=== PATIENT | male | born 1970 | race African-American/Black ===

== ENCOUNTER 2023-09-15 05:03 | Observation (INO) ==
--- NOTE | 2023-08-13 09:28 | PAT Medication Instructions ---
Medication Instructions Date of Service August 13, 2023 Home Medications Medication Instructions Recorded Lennie Chapman #1 ea 08/11/23 lamotrigine 150 mg tablet 150 mg PO BID #90 tabs 08/11/23 lisinopril 10 mg tablet 10 mg PO BID #90 tabs 08/11/23 topiramate 50 mg tablet 50 mg PO BID #90 tabs 08/11/23 lamotrigine 150 mg tablet 150 mg PO BID lisinopril 10 mg tablet 10 mg PO BID topiramate 50 mg tablet 50 mg PO BID Medical Marijuana 1 inh inhalation UD PRN cholecalciferol (vitamin D3) 1,250 mcg (50,000 unit) capsule 1,250 mcg PO WK sumatriptan succinate 6 mg/0.5 mL subcutaneous pen injector 6 mg subcut ONCE PRN Continue as directed sumatriptan succinate 6 mg/0.5 mL subcutaneous pen injector 6 mg subcut ONCE PRN (if needed) DO NOT take the morning of surgery lisinopril 10 mg tablet 10 mg PO BID Medical Marijuana 1 inh inhalation UD PRN cholecalciferol (vitamin D3) 1,250 mcg (50,000 unit) capsule 1,250 mcg PO WK Take morning of surgery With a small sip of water, OTHERWISE NOTHING TO EAT OR DRINK AFTER MIDNIGHT: lamotrigine 150 mg tablet 150 mg PO BID topiramate 50 mg tablet 50 mg PO BID Take evening before surgery lamotrigine 150 mg tablet 150 mg PO BID lisinopril 10 mg tablet 10 mg PO BID topiramate 50 mg tablet 50 mg PO BID Other Notes If you have any questions please call us at [phone] or [phone] or [phone] or [phone]
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
[2023-09-15] MEDS: METOCLOPRAMIDE HCL 10 MG TABLET PO SCH (05:43)
[2023-09-15] MEDS: ACETAMINOPHEN 500 MG TAB PO SCH ×2 (05:43→13:35)
[2023-09-15] MEDS: Scopolamine 1 MG TDSY TD SCH (05:43)
[2023-09-15] MEDS: FAMOTIDINE 20 MG TAB PO SCH (05:43)
[2023-09-15] MEDS: CeleBREX 200 MG CAP PO SCH (05:43)
[2023-09-15] MEDS: dexAMETHasone**PF** 10 MG/ML VIAL IV SCH (05:56)
[2023-09-15] MEDS: LR 60ML/HR IV SCH (05:57)
[2023-09-15] MEDS: LR 500ML BOLUS, THEN 15ML/HR IV SCH (05:57)
[2023-09-15] MEDS ORDERED: BUPIVACAINE 0.25% PF 30 ML VIAL ONE (06:19)
[2023-09-15] MEDS ORDERED: EPINEPHrine INJ 1 MG/ML AMP ONE (06:19)
[2023-09-15] MEDS ORDERED: BUPIVACAINE 0.5 % 5 MG/1 ML PF 10ML VIAL ONE (06:19)
[2023-09-15] MEDS ORDERED: DEXAMETHASONE SOD INJ 4 MG/ML VIAL ONE (06:19)
[2023-09-15] MEDS ORDERED: MIDAZOLAM HCL 1 MG/ML 2ML VIAL ONE ×2 (06:32→06:53)
[2023-09-15] MEDS ORDERED: GLYCOPYRROLATE 0.2 MG/ML VIAL ONE (06:36)
[2023-09-15] MEDS ORDERED: PROPOFOL IV EMULSION 10 MG/ML 100 ML VIAL IV ONE (06:36)
[2023-09-15] MEDS ORDERED: LIDOCAINE 2% 2 ML VIAL/AMP(20MG/ML) INFIL ONE (06:36)
[2023-09-15] MEDS ORDERED: ONDANSETRON INJ 2 MG/ML 2 ML VIAL ONE (06:36)
--- NOTE | 2023-09-15 06:55 | History & Physical Bridge Note ---
Date of Service September 15, 2023 History & Physical Bridge Note I have examined the patient, reviewed the History & Physical and in the interval since the performance of the History & Physical I have noted the following changes of clinical significance: no changes noted
[2023-09-15] MEDS ORDERED: fentaNYL citrate PF 100 MCG/2 ML VIAL ONE (07:02)
[2023-09-15] MEDS ORDERED: ATROPINE SULFATE 0.1 MG/ML 10ML SYR IV PRN (07:13)
[2023-09-15] MEDS ORDERED: ePHEDrine sulfate 50 MG/ML AMP IV PRN (07:13)
[2023-09-15] MEDS ORDERED: fentaNYL citrate PF 100 MCG/2 ML VIAL IV PRN (07:13)
[2023-09-15] MEDS ORDERED: ONDANSETRON INJ 2 MG/ML 2 ML VIAL IV PRN ×2 (07:13→10:10)
[2023-09-15] MEDS ORDERED: KETAMINE HCL 10MG/ML SYR ONE (07:17)
[2023-09-15] MEDS: ceFAZolin 2000MG 2,000 MG/15 ML SYR IV SCH (07:20)
[2023-09-15] MEDS ORDERED: KETOROLAC 30 MG/ML VIAL ONE (07:40)
[2023-09-15] MEDS: ORTHO JOINT ANESTHETIC ONE (08:02)
[2023-09-15] MEDS: ROPIV 0.5% 246mg, Ketorolac 30mg, EPINEPHrine 0.5mg in NSS INFIL SCH (08:09)
[2023-09-15] MEDS: TRANEXAMIC ACID 1,000 MG **IV Intra-op IV SCH (08:12)
--- NOTE | 2023-09-15 09:14 | Operative Report ---
PG Post Operative Report Pre & Post Diagnosis Operation Date: 09/15/23 07:15 Pre-Op Diagnosis: Right Knee Degenerative Joint Disease Post-Op Diagnosis: Right Knee Degenerative Joint Disease I identified the patient and participated in the time-out.: Yes Procedure Operation Date: 09/15/23 07:15 Actual Procedures p Right Total Knee Arthroplasty(Right) - Neal Kruger MD Surgeon Neal Kruger MD Printing Technician Juan R Ceja PA-C Estimated Blood Loss 50 Findings Consistent with Post-Op Diagnosis Operative findings reveal advanced right knee medial compartment DJD with extensive grade 4 [id number] disease particular the medial femoral condyle. There was bloody hemorrhage of the medial femoral condyle as well. He had grade 4 disease of the patellofemoral joint. The lateral compartment is pretty well spared. He had a fixed varus deformity to his knee. Specimens Right knee sent for pathology. Drains None Anesthesia Type Spinal MAC Complications none Disposition Accompanied Patient To Recovery: No Indications Patient is a 53-year-old gentleman is had a long history of bilateral knee pain discomfort describes gotten worse over time. Is been through extensive conservative treatment which became less successful over time. X-rays show advanced bilateral knee DJD. The right knee was bothering more than the left. He elected proceed with right total knee arthroplasty. Description of Procedure Operative implants consist of: 1 Biomet Vanguard size 72.5 right Po stabilized femoral component. 2. Biomet size 75 tibial tray. 3. 10 mm post stabilized polyethylene insert. 4. 34 x 8-1/2 all poly patella. The patient was taken the op room, identified, placed on the operating table in the supine position. All contact areas were appropriately padded. IV antibiotics tried by anesthesia team. Spinal anesthetic and abductor canal block had provided in the holding area. A right thigh tent was then placed. The right lower extremity was then prepped and draped in usual sterile fashion. The right leg was elevated exsanguinated with use of an Esmarch and a turn was placed at 300 mmHg. An anterior approach to the right knee was then performed to longitudinal incision centered over the patella. Sharp dissection was carried out through subcutaneous tissue down the extensor mechanism. Medial parapatellar arthrotomy incision was made. Some subperiosteal dissection was carried out medially. The fat pad was resected from Neath patella tendon. Lateral patellofemoral ligament was released. Patella subluxated laterally the knee was flexed. The osteophytes taken off distal femur. The ACL and PCL were then released from the distal femur the tibia subluxated anteriorly. The external tibial alignment jig was then placed the interface the tibia and adjusted 14 mm medially. Proximal tibial cut was made to move out a millimeter bone from most deficient aspect medial tibial plateau. He did have a pretty varus deformity to his knee which took off a fairly large piece laterally. The tibia was then sized to a size 75. Attention drawn the femur. The distal femur examined the sharp drop with intramedullary canal was suction. A right 6 degree valgus cutting guide was placed. The distal femoral cutting block was pinned in place. Distal femoral cut was made take an additional 3 mm of bone off distal femur. The femur was then sized to a size 72.5. The AP cutting block was pinned parallel to the epicondylar axis which was 4 degrees of external rotation. The anterior cut, anterior chamfer, posterior cut, posterior chamfer cuts were made. The box cutting guide was placed in the just slightly box cut was made. The knee was flexed. The remnants of the medial and lateral menisci were excised. The osteophytes were taken off the posterior aspect the femur. A trial femoral component was placed. The tibial tray was pinned Lorna external rotation and the drill and stem punch used to create defect in proximal tibia for the tibial tray. The knee was then trialed and the 10 mm insert fit most appropriately. Attention drawn the patella. The patella was cleaned of all soft tissues. Patella thickness measured 22 mm in thickness. It was cut down to 13. Was sized to a size 34 patella. The lug holes were drilled for 34 patella. The lateral osteophyte was removed. Patella button was placed. The knee was taken through range of motion and patella tracked nicely with no thumbs test. Attention drawn to place the components. Nupathe all trial components were removed. Bone plug was placed into this femur limit blood loss. Double batch Palacos G cement was mixed. BiomBrainsgateguard size 72.5 right Po stabilized femoral component, size 75 tibial tray, a 10 mm post stabilized polyethylene insert, and a 34 x 8 and half all poly patella then cemented in place. The knee was brought out into full extension till cement hardened. Final cement check was then performed. Pericapsular tissues were injected with total 100 cc of orthopedic joint mix. The patient did receive 1 g tranexamic acid. The tourniquet was then let down for final tourniquet time 57 minutes. Hemostasis assured with electrocautery. Extensor Meclomen closed with combination 1 PDS suture #1 Vicryl suture in a [id number] fashion. Extensor Meclomen checked found to be intact through subcutaneous tissue then closed with 2 Dexon suture in a buried interrupted fashion skin was closed skin rocio. Leg was then cleaned and dried and sterile dressing with Xeroform, 4 fours, sterile cast padding, Aidan bandage were applied. Patient then transferred to the recovery room in stable condition. Patient tolerated procedure well and there were no complications. Juan R Ceja, my physician janitorial assistant, was present for the entire procedure. His assistance was essential and required for appropriate patient positioning, prepping and draping, surgical exposure, performing the technical details of the operation, placement the implants, closure of the wound, and placement of the sterile bandage. I attest to the content of the Intraoperative Record and any orders documented therein. Any exceptions are noted below.
--- NOTE | 2023-09-15 09:52 | XRay Report ---
TWO VIEWS RIGHT KNEE CLINICAL HISTORY: Postoperative examination. FINDINGS: AP and crosstable lateral portable views of the right knee are obtained. A right knee arthr oplasty is in near anatomic alignment. There has been undersurface remodeling of the patella. No acut e fracture is seen. There are expected postoperative changes around the knee including skin clips, so ft tissue edema, and subcutaneous gas. IMPRESSION: Expected postoperative changes status post right knee arthroplasty. No acute fracture is seen. ACT 112: Negative or not required by law. Electronically signed by: Gm Clark M.D. 09/15/2023 9:51 AM
[2023-09-15] MEDS ORDERED: bisacodyL 10 MG SUPP PR PRN (10:10)
[2023-09-15] MEDS ORDERED: diphenhydrAMINE Capsule 25 MG CAP PO PRN (10:10)
[2023-09-15] MEDS ORDERED: NON-FORMULARY MEDICATION (Peg 3350-Sod Sulf,Chlr-Pot-Mag [Suflave] 178.7-7.3-0.5 gram reco PO SCH (10:10)
[2023-09-15] MEDS ORDERED: NO NSAIDS SCH (10:10)
[2023-09-15] MEDS ORDERED: MAGNESIUM HYDROXIDE SUSP 30 ML UDC PO PRN (10:10)
[2023-09-15] MEDS ORDERED: METOCLOPRAMIDE HCL INJ 5 MG/ML 2 ML VIAL IV PRN (10:10)
[2023-09-15] MEDS ORDERED: NON-FORMULARY MEDICATION (Medical Marijuana 1 PUFFS) INH PRN (10:10)
[2023-09-15] MEDS ORDERED: NALOXONE HCL 0.4 MG/1 ML VIAL/CARP IV PRN (10:10)
[2023-09-15] MEDS ORDERED: ALUMINUM/MAGNESIUM SUSP 30 ML UDC PO PRN (10:10)
--- NOTE | 2023-09-15 10:18 | Anesthesiology Progress Note ---
Date of Service September 15, 2023 Anesthesia Post Procedure Vital Signs Vital Signs: Temp Pulse Pulse Resp BP Pulse Ox O2 Del Method 09/15/23 10:00 36.3 C L 69 18 109/72 100 Room Air 09/15/23 09:40 36.3 C L 51 L 12 114/73 100 Room Air 09/15/23 09:30 57 L 14 107/65 100 Room Air 09/15/23 09:20 52 L 18 102/61 94 Room Air 09/15/23 09:10 78 18 116/71 93 Room Air 09/15/23 09:04 36.1 C L 93 H 20 122/68 94 Room Air 09/15/23 05:32 36.6 C 85 22 122/80 99 Room Air Pain Intensity Right Knee: Pain Intensity: 7 Transfer of Care Handoff Completed per policy Notes Mental Status: alert / awake / arousable Patient Amnestic to Procedure: Yes Nausea / Vomiting: adequately controlled Pain: adequately controlled Airway Patency, RR, SpO2: stable & adequate BP & HR: stable & adequate Hydration State: stable & adequate Neuraxial Anesthesia: was administered and sensory block is resolving Anesthetic Complications: no major complications apparent and Pt Satisfied with anesthetic care
[2023-09-15] MEDS: SODIUM CHLORIDE 0.9% 1,000 ML IV SCH (10:33)
[2023-09-15] MEDS ORDERED: SUMAtriptan succinate 6 MG/0.5 ML VIAL SQ PRN (10:38)
[2023-09-15] MEDS: oxyCODONE HCL IR 5 MG TAB (IMMEDIATE RELEASE) PO PRN (13:37)
[2023-09-15] MEDS: ASCORBIC ACID 500 MG TAB PO SCH (15:54)
[2023-09-15] MEDS: ceFAZolin 1000MG 1,000 MG/7.5 ML SYR IV SCH (15:54)
[2023-09-15] MEDS: TRANEXAMIC ACID / 0.7% NACL 1,000 MG/100 ML BAG IV SCH (15:54)
[2023-09-15] MEDS: Scopolamine CHECK PATCH PLACEMENT SCH (15:55)
[2023-09-15] MEDS: HYDROmorphone INJ 0.5 MG/0.5 ML SYR IV PRN (17:38)
[2023-09-15] MEDS: ASPIRIN 81 MG ECTAB PO SCH (20:02)
[2023-09-15] MEDS: SENNA 8.6 MG TAB PO SCH ×2 (20:02→20:03)
[2023-09-15] MEDS: DOCUSATE SODIUM 100 MG CAP PO SCH (20:03)
[2023-09-15] MEDS: TOPIRAMATE 50 MG TAB PO SCH (20:03)
[2023-09-15] MEDS: lamoTRIgine 100 MG TAB PO SCH (20:03)
[2023-09-15] MEDS: lisinopril 10 MG TAB PO SCH (20:03)
[2023-09-16 07:36] LABS: Hematocrit (blood only) 33.6 % (42.0-52.0); Hemoglobin 11.7 g/dl (14.0-18.0); Mean Corpuscular Hemoglobin 31.2 pg (25.0-34.0); Mean Corpuscular Hgb Conc 34.8 g/dL (32.0-36.0); Mean Corpuscular Volume 89.6 fL (80.0-100.0); Platelet Count 186 K/uL (130-400); RDW Coefficient of Variation 12.5 % (11.5-14.5); Red Blood Count 3.75 M/uL (4.70-6.10); White Blood Count 11.88 K/ul (4.8-10.8)
[2023-09-16 08:03] LABS: BUN Creatinine Ratio 14.2 (10-20); Calcium 8.3 mg/dl (8.6-10.3); Creatinine Clr Calc Pharmacy 53.5 ml/min; Est GFR (African American) 54.9 ml/min; Est GFR (Non-African American) 47.4 ml/min; Potassium 3.7 mmol/L (3.5-5.1)
[2023-09-16] MEDS: ERGOCALCIFEROL 1250 MCG (50,000 UNITS) CAP PO SCH (09:24)
[2023-09-16] MEDS: MULTIVITAMIN TAB PO SCH (09:25)
[2023-09-16] MEDS: TAMSULOSIN HCL 0.4 MG CAP PO SCH (09:26)
[2023-09-16] MEDS: dexAMETHasone 10 MG in SYRINGE 0 ML IV SCH (09:26)
--- NOTE | 2023-09-16 14:33 | Orthopedic Progress Note ---
Date of Service September 16, 2023 Assessment & Plan (1) Status post right knee replacement: Overall, he is doing quite well today with good pain control to the right knee. He will work with physical therapy later this morning to work on ambulation and range of motion exercises. He is on aspirin for DVT prophylaxis. He can be discharged home later this morning pending physical therapy evaluation. He will follow-up with Dr. Kruger in 2 weeks for postoperative management. Subjective . Lev was seen and evaluated this morning resting comfortably this morning in no apparent distress. He notes that his pain is well-controlled to the right knee. He has been up and out of bed with no significant issues. He has yet to work physical therapy yet this morning. He denies any other concerns today. Review of Systems All systems reviewed & are unremarkable except as noted in HPI & below. Physical Exam . On physical examination of the right knee, dressings are clean, dry, intact. His leg is out in full extension. He has active plantarflexion dorsiflexion of the right ankle. +2 DP and PT pulses. Less than 2-second capillary refill. Normal sensation. Neurovascular intact. Results & Data Results & Data Laboratory Results . Diagnostic Findings . Postoperative x-rays of the right knee show prosthesis to be in anatomical alignment with no signs of fracture complication or loosening. PG Care Time/CCT Total # of Minutes Spent Total Time Spent with Patient: Total time spent is greater than 50% in coordination of care (as documented) at patient's floor/unit and/or counseling patient: Coding Level of Care Code 66356 Post Operative Follow-Up Diagnoses Status post right knee replacement Z96.651
--- NOTE | 2023-09-16 14:34 | Discharge Summary ---
Date of Service September 16, 2023 Admission HPI (Per Admitting) . Patient is a 53-year-old gentleman from [place] [employer] who presents for surgical treatment of his knees. Got a long history of bilateral knee pain discomfort is gradually gotten worse over time. He has been treated at [facility] with extensive conservative treatment. He thought he was actually going to undergo surgery but they never really had any follow-up with them. He is decided to have come here and get his knees done with us. The right knee bothers him more than the left. He has been through extensive conservative treatment which just does not help anymore. He is having difficulty maintaining an active lifestyle. Limps more as the day goes on. He has nighttime pain. He like to have his knees fixed. Admission Exam (Per Admitting) . Physical examination was a pleasant middle-age male. Looks in reasonably good health. Examination of both knees reveal patient walks with a bit of an antalgic gait. Is got varus alignment to both knees. He is got a varus thrust with weightbearing when he walks on both knees. Range of motion is pretty symmetric with about 10 to 15 degree flexion contracture and only bends about 115 degrees bilaterally. No particular pain with hip motion on either side. He is neurologically intact. Principal Diagnosis Same as "Discharge Diagnosis" noted below under Discharge Instructions. Discharge Exam . On physical examination of the right knee, dressings are clean, dry, intact. His leg is out in full extension. He has active plantarflexion dorsiflexion of the right ankle. +2 DP and PT pulses. Less than 2-second capillary refill. Normal sensation. Neurovascular intact. Discharge Data Procedures Performed Operation Date: 09/15/23 07:15 Actual Procedures p Right Total Knee Arthroplasty(Right) - Neal Kruger MD Ordered Studies 09/15/23 05:00 US - OR guided needle placemen Routine Hospital Course (1) Status post right knee replacement: On September 15, 2023 Lev arrived at [facility] and underwent a right total knee arthroplasty performed by Dr. Kruger with no complications. He had a spinal anesthetic. Postoperatively, he was started on aspirin for DVT prophylaxis and transferred to the general orthopedic floor in stable condition. His hospital course was uneventful. On postoperative day #1, his vital signs were stable and his pain was well-controlled. He participated well with physical therapy working on ambulation and range of motion exercises. He was then discharged home in stable condition. He will follow-up with Dr. Kruger in 2 weeks for postoperative management. PG Care Time/CCT Total # of Minutes Spent Total Time Spent with Patient: Total time spent is greater than 50% in coordination of care (as documented) at patient's floor/unit and/or counseling patient: Discharge Plan Discharge Items Patient Disposition: Home - Home Health Services Reason For Visit: Right Knee Degenerative Joint Disease Discharge Diagnosis: Right Knee Replacement Activity: Per Instructions section Non-emergency contact: Surgeon Call non-emergency contact if: you have any medication questions Follow-up/Referrals: Evan Sanchez MD [Outside Practitioners] - Diet: Regular Addtl Attending Provider Instructions: ACTIVITY RECOMMENDATIONS: Physical Therapy: * You will go to physical therapy three times each week for four to six weeks after your surgery in order to regain your knee range of motion and to retrain your knee to work properly. * It is just as important to make sure you are getting your knee perfectly straight as it is to regain your knee bend. * Taking a pain pill an hour before therapy can help you have a more productive and comfortable therapy session. Home Exercise: * You were shown a series of exercises (heel props, heel slides, etc.) in the hospital. Do these exercises three to four times each day including the exercises you were shown in physical therapy. Walking: * Get up and walk several times each day. For the first four weeks, try not to stand or walk for more than one hour at a time. If you do stand or walk for more than one hour, you will not hurt anything, but your knee and leg will likely swell. * As you feel comfortable, you may change from the walker or crutches to a cane and then to independent walking. MEDICATIONS: New Medicine: * You will likely be taking one or more of these medications: 1. Oxycodone - A quick and shorter-acting pain medication. Take one to two tablets every six hours to lessen your pain. 2. Aspirin - Thins your blood to lessen the chance of forming a blood clot. * The most common side effects of pain medicine and iron are nausea and constipation. If nausea or constipation is too much of a problem or if you have any questions about your new medicines or doses, call [facility] at . We will try to help you manage these issues. "VERY IMPORTANT TO READ AND REVIEW" Pain: * The immediate post-operative period after knee replacement surgery is often quite painful. * You are given a prescription for pain medicine. You should take it, as directed, when you need it, especially before physical therapy and before going to bed. Pain that interferes with sleep is very common and can last several months. * You will likely need pain medicine for the first four to six weeks. It will not stop all of the pain. The pain will lessen and as you feel better, you may change to milder pain medicine such as Tylenol. * The most common side effects of pain medicine are nausea and constipation, so don't take more than you need. SPECIAL CARE INSTRUCTIONS: TEDs/Elastic Stockings: * The white elastic stockings help limit swelling and prevent blood clots from forming in your legs. The more you wear them, the more they work. * Wear them for six weeks after knee replacement surgery and four weeks after partial knee replacement. Incision Site Care: * Remove dressing postoperative day 2 and then shower. Keep direct shower pressure off the incision site. * After showering, cover rocio with dry gauze and change daily or more frequently if the dressing is getting saturated with drainage. * Use the JOAN stockings to hold dressing in place. DO NOT apply tape on the skin. * May completely stop using bandage if wound is dry and no drainage * [place] are removed between 2 and 3 weeks post-op. If your follow-up appointment is made before 2 weeks, please have your appointment re- scheduled. It is too early to remove the rocio. Prevention of Infection: * Take antibiotics one hour before any dental cleaning, dental work, urological procedure, gastrointestinal procedure or any invasive surgery in order to prevent your new joint from getting infected. * You may get the antibiotics from the doctor performing the procedure or you may call our office at [phone] before and we will call in a prescription to the pharmacy of your choice. Things to Watch For: * Drainage from the incision site that occurs more than one week after your surgery. * Severely increased knee/leg pain or swelling. * Increased redness at the incision site. * Fever above 102 degrees Fahrenheit. * Unusual chest pain or shortness of breath. * Unusual pain or burning with urination. Call [facility] at [phone] with any of the above problems or if you have any questions about your medicines or recovery. FOLLOW UP VISIT: Make an appointment to see your doctor for approximately two weeks after surgery for a progress check and staple removal by calling the office at [phone]. Pending Studies at Discharge: No Stand-Alone Forms: My [facility] [employer], Smoking Cessation Medications and DC Order Prescriptions: Continued (DME) Wheeled Walker Misc See Rx Instructions .MEDSUPPLY Qty: 1 0RF Rx Instructions: As directed oxycodone 5 mg tablet 5 - 10 mg PO Q6 PRN (Reason: pain) Qty: 40 0RF Rx Instructions: Take as needed for pain ondansetron 4 mg tablet,disintegrating 4 mg PO Q8 PRN (Reason: nausea) Qty: 20 1RF Rx Instructions: Take as needed for nausea sennosides [Senokot] 8.6 mg tablet 8.6 mg PO BID 14 Days Qty: 28 0RF Rx Instructions: Take two times a day to prevent/treat constipation acetaminophen [Tylenol Extra Strength] 500 mg tablet 1,000 mg PO TID 30 Days Qty: 180 0RF Rx Instructions: TAke 3 times per day to lessen pain. aspirin [Ry Low Dose Aspirin] 81 mg tablet,delayed release (DR/EC) 81 mg PO BID 45 Days Qty: 90 0RF Rx Instructions: Take to prevent blood clots. tamsulosin [Flomax] 0.4 mg capsule 0.4 mg PO DAILY Qty: 7 0RF Rx Instructions: Begin night BEFORE surgery to prevent urinary retention cefadroxil 500 mg capsule 500 mg PO BID 7 Days Qty: 14 0RF Rx Instructions: Take 1 cap twice a day to prevent infection Suflave 178.7-7.3-0.5 gram recon soln See Rx Instructions PO .COMPLEX Qty: 2 0RF Rx Instructions: TAKE DIRECTED PER SPLIT DOSE INSTRUCTIONS BIN: [id number] PCN: [id number] GROUP: [id number] lamotrigine 150 mg tablet 150 mg PO BID Qty: 90 2RF lisinopril 10 mg tablet 10 mg PO BID Qty: 90 2RF topiramate 50 mg tablet 50 mg PO BID Qty: 90 2RF sumatriptan succinate 6 mg/0.5 mL pen injector 6 mg subcut ONCE PRN (Reason: migraines) cholecalciferol (vitamin D3) 1,250 mcg (50,000 unit) capsule 1,250 mcg PO WK Medical Marijuana 1 inh inhalation UD PRN (Reason: prn) Admission Data Admit Date/Time: 09/15/23 09:11 Attending Provider: Neal Kruger Admit Provider: Neal Kruger Primary Care Provider: Gloria De León Other Providers: [facility],Home Health Other Interventions: Discharge Summary Assessment (RN) Last Done: 09/16/23 10:16
== END 2023-09-16 11:22 | disposition home health service (06) ==
LOC: ASU 05:03 → 3E 05:03
DX: N18.30 Chronic kidney disease, stage 3 unspecified; M65.9 Synovitis and tenosynovitis, unspecified; I12.9 Hypertensive chronic kidney disease with stage 1 through stage 4 chronic kidney disease, or unspecified chronic kidney disease; G40.909 Epilepsy, unspecified, not intractable, without status epilepticus; M17.0 Bilateral primary osteoarthritis of knee; Z87.828 Personal history of other (healed) physical injury and trauma; Z79.899 Other long term (current) drug therapy; M25.761 Osteophyte, right knee; Z79.82 Long term (current) use of aspirin